=== PATIENT | male | born 1990 | race Caucasian/White ===

== ENCOUNTER 2024-09-05 11:17 | Emergency (ER) | payer OTHER, SELFPAY ==
[2024-09-05 11:28] VITALS: BP 172/100; PULSE 85; RESP 17; TEMP 37.1; O2SAT 95
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
[2024-09-05] MEDS: MORPHINE SULF INJ 10 MG/ML VIAL 4 MG IVP (12:20)
[2024-09-05] MEDS: ONDANSETRON INJ 2 MG/ML INJ 2 ML 4 MG IV (12:20)
[2024-09-05 12:59] VITALS: BMI 27.8
[2024-09-05 13:02] VITALS: PULSE 106; RESP 21; O2SAT 97
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
[2024-09-05 13:11] VITALS: BP 162/104; PULSE 88; RESP 20; TEMP 37.1; O2SAT 93
[2024-09-05 13:30] VITALS: BP 159/97; PULSE 70; RESP 18; TEMP 36.6; O2SAT 96
[2024-09-05 13:33] LABS: Basophils # (Auto) 0.1 Thou/mm3 (0.0-0.2); Basophils % (Auto) 1 % (0-2.5); Eosinophils % (Auto) 0 % (0-10); Hematocrit 53.8 % (41.0-53.0); Immature Granulocytes % (Auto) 0 % (0-0); Immature Granulocytes Auto 0.05 Thou/mm3 (0.00-0.00); Lymphocytes % (Auto) 8 % (10-50); Mean Corpuscular HGB Conc 35.3 g/dl (31.0-37.0); Mean Corpuscular Hemoglobin 30.5 pg (25.0-35.0); Mean Corpuscular Volume 87 fL (80-100); Monocytes # (Auto) 0.8 Thou/mm3 (0.0-0.8); Monocytes % (Auto) 7 % (0-12); Neutrophils # (Auto) 10.3 Thou/mm3 (1.8-7.7); Neutrophils % (Auto) 85 % (37-80); Nucleated Red Blood Cell % 0 /100 WBC (0); Platelet Count 210 Thou/mm3 (140-440); RDW Standard Deviation 40.4 fL (35.1-43.9); Red Blood Count 6.22 Miln/mm3 (4.50-5.90); White Blood Count 12.1 Thou/mm3 (3.8-10.6)
[2024-09-05 14:00] LABS: Alanine Aminotransferase 45 U/L (10-49); Albumin, Serum 4.4 gm/dL (3.5-5.0); Albumin/Globulin Ratio 2.1 (1.2-2.2); Alkaline Phosphatase 65 U/L (46-116); Anion Gap 7 (7-16); Aspartate Amino Transferase 40 U/L (0-34); BUN/Creatinine Ratio 15 Ratio (12-20); Bilirubin,Total 0.4 mg/dL (0.3-1.2); Blood Urea Nitrogen 15 mg/dL (9-23); Calcium 9.3 mg/dL (8.3-10.6); Calcium (Corrected) 9.3 mg/dL (8.5-10.1); Carbon Dioxide 27.4 mMol/L (20.0-31.0); Chloride 106 mMol/L (98-107); Estimated Creatinine Clearance 106.9 mL/min (>60); Globulin 2.1 gm/dL (2.3-3.5); Glucose 98 mg/dL (74-106); Osmolality,Calculated 280 (275-295); Potassium 4.3 mMol/L (3.4-5.1); Sodium 140 mMol/L (136-145); Total Protein 6.5 gm/dL (5.7-8.2); eGFR > 60 See Note
--- NOTE | 2024-09-05 16:21 | PC.NURSE ---
[place] 5mg given at 1620. Unable to scan due to system glitch. transcription specialist sara notified
[2024-09-05] MEDS: HYDROcodone/APAP 5/325 TABLET 1 TAB PO (16:30)
== END 2024-09-05 17:40 | disposition home or self-care (01) ==
PROVIDERS: Registered Nurse General Practice; Emergency Provider Emergency Medicine
DX: S92.191A Other fracture of right talus, initial encounter for closed fracture (principal); S20.219A Contusion of unspecified front wall of thorax, initial encounter; S99.921A Unspecified injury of right foot, initial encounter; S99.911A Unspecified injury of right ankle, initial encounter; S19.9XXA Unspecified injury of neck, initial encounter; S09.90XA Unspecified injury of head, initial encounter; S39.91XA Unspecified injury of abdomen, initial encounter; V56.5XXA Driver of pick-up truck or van injured in collision with other nonmotor vehicle in traffic accident, initial encounter
CPT/HCPCS: 29515; 36415; 70450; 71260; 72125; 73610; 73630; 73700; 74177; 80053; 85025; 96374; 96375; 99285; A4649; J2270; J2405; Q9967; A9270